=== PATIENT | female | born 1955 | race Caucasian/White ===

== ENCOUNTER → 2017-07-29 | Outpatient (CLI) | payer BC | LOC: M WUC 11:00 | DX: R05 Cough (principal) | CPT/HCPCS: 71046 ==

== ENCOUNTER → 2018-07-23 | Outpatient (CLI) | payer OTHER ==
--- NOTE | 2018-07-23 11:30 | REP ---
RIGHT ANKLE: Three views. HISTORY: Contusion. FINDINGS: AP and both oblique views of the ankle are presented. There is an obliquely oriented fracture through the distal fibular metaphysis at the level of the ankle mortise. There is an accessory ossicle adjacent to the medial malleolar tip. No acute tibial fracture is seen. No lateral view is included. There is diffuse soft tissue swelling. There are metallic screws in the distal 1st and 5th metatarsals. IMPRESSION: Obliquely oriented fracture through the distal fibula without significant displacement. No lateral view presented. Electronically Signed by Yaya Taylor MD 07/23/2018 04:24 P
--- NOTE | 2018-07-23 11:31 | REP ---
RIGHT TIB/FIB SERIES: Four views. HISTORY: For views of the right tib/fib are obtained including a lateral view centered at the ankle. An obliquely oriented distal fibular fracture is again noted. No tibial fracture is seen. Ankle mortise appears intact. There is osteoarthritic spurring of the patella. IMPRESSION: Distal fibular fracture. Electronically Signed by Yaya Taylor MD 07/23/2018 04:25 P
--- NOTE | 2018-07-23 11:32 | REP ---
RIGHT FOOT, FOUR VIEWS: HISTORY: Contusion. The patient is status post osteotomy of the 1st and 5th metatarsals. Metal screws are present. There is no acute fracture or dislocation. The joint spaces are normal in appearance. IMPRESSION: There is no acute fracture or dislocation. Electronically Signed by Bart Jones MD 07/23/2018 11:38 A
== END ==
LOC: M WUC 10:42
PROVIDERS: ATTEND Physician Assistant
DX: S82.434A Nondisplaced oblique fracture of shaft of right fibula, initial encounter for closed fracture (principal); X58.XXXA Exposure to other specified factors, initial encounter; Y92.9 Unspecified place or not applicable

== ENCOUNTER → 2019-08-12 | Outpatient (CLI) | payer OTHER ==
--- NOTE | 2019-08-12 16:00 | REP ---
Clinical: Neck pain. Technique: AP, lateral, flexion/extension, bilateral oblique and open mouth views of the cervical spine. Findings: Alignment and lordosis maintained. No acute fracture / compression injury or subluxation. Mild degenerative disc disease noted at C4-5 and C5-6 with endplate sclerosis, marginal early spurring, and minimal disc space narrowing. Minimal endplate sclerosis and disc space narrowing also suggested at the C6-7 level. Neural foramen appear patent. Open mouth view demonstrates normal C1-C2 articulation and odontoid process. Impression: Essentially age-related degenerative changes through the mid cervical spine. No acute fracture / compression injury or subluxation. Electronically Signed by Rudy Hickey MD 08/12/2019 03:51 P
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
== END ==
LOC: M WUC 15:19
PROVIDERS: ATTEND Internal Medicine
DX: M54.5 Low back pain (principal); K80.20 Calculus of gallbladder without cholecystitis without obstruction; M50.321 Other cervical disc degeneration at C4-C5 level; M50.322 Other cervical disc degeneration at C5-C6 level

== ENCOUNTER → 2019-09-09 | Outpatient (CLI) | payer OTHER ==
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
== END ==
LOC: M WUC 13:20
PROVIDERS: ATTEND Registered Nurse
DX: M25.541 Pain in joints of right hand (principal); M25.542 Pain in joints of left hand; M25.531 Pain in right wrist; M25.532 Pain in left wrist; Z87.828 Personal history of other (healed) physical injury and trauma

== ENCOUNTER → 2021-07-08 | Outpatient (REF) | payer OTHER | LOC: M LAB REF 16:16 | PROVIDERS: ATTEND Internal Medicine | DX: T14.90XA Injury, unspecified, initial encounter (principal); W57.XXXA Bitten or stung by nonvenomous insect and other nonvenomous arthropods, initial encounter; Y92.9 Unspecified place or not applicable; Y93.9 Activity, unspecified; Y99.9 Unspecified external cause status ==

== ENCOUNTER → 2022-04-03 | Outpatient (CLI) | payer OTHER | LOC: M WHC 14:39 | PROVIDERS: ATTEND Internal Medicine | DX: Z12.31 Encounter for screening mammogram for malignant neoplasm of breast (principal) ==

== ENCOUNTER → 2023-12-08 | Outpatient (CLI) | payer BC | LOC: M WHC 10:59 | PROVIDERS: ATTEND Internal Medicine | DX: Z12.31 Encounter for screening mammogram for malignant neoplasm of breast (principal); R92.313 Mammographic fatty tissue density, bilateral breasts ==

== ENCOUNTER 2024-01-18 11:56 | Day surgery (SDC) | payer BC ==
[~2024-01-18] VITALS: Ht 160 cm; Wt 85.1 kg
[~2024-01-18 11:56] MED LIST: ALEV220T22 PO; ESTR1TAB PO; LEVO100T5 PO; METO1TAB7 PO; SIMV20TA22 PO; THERTAB52 PO
[2024-01-18] MEDS: NS 1,000 ML IV ONE (12:29)
[2024-01-18] MEDS ORDERED: LIDOCAINE 2% 100MG/5ML SDV (FOR ANES.) As Ordered ONE (12:47)
[2024-01-18] MEDS ORDERED: propofoL 200 MG/20 ML VIAL As Ordered ONE (12:47)
[2024-01-18] MEDS ORDERED: fentaNYL 100 MCG/2 ML INJECTION As Ordered ONE (13:10)
[2024-01-18 13:44] VITALS: BP 144/71; O2SAT 98
== END 2024-01-18 14:05 | disposition home or self-care (01) ==
LOC: M OPP 11:56
PROVIDERS: ATTEND Internal Medicine Gastroenterology
DX: Z12.11 Encounter for screening for malignant neoplasm of colon (principal); D12.6 Benign neoplasm of colon, unspecified; K64.0 First degree hemorrhoids; K21.00 Gastro-esophageal reflux disease with esophagitis, without bleeding; K44.9 Diaphragmatic hernia without obstruction or gangrene; R12 Heartburn; Z87.891 Personal history of nicotine dependence; Z79.02 Long term (current) use of antithrombotics/antiplatelets; Z79.1 Long term (current) use of non-steroidal anti-inflammatories (NSAID); Z79.818 Long term (current) use of other agents affecting estrogen receptors and estrogen levels; Z79.890 Hormone replacement therapy; Z79.899 Other long term (current) drug therapy
CPT/HCPCS: 43239; 45380; 45385; 88305; J3010

== ENCOUNTER 2025-01-09 06:40 | Day surgery (SDC) | payer BC ==
[~2025-01-09] VITALS: Ht 160 cm; Wt 84.2 kg
[~2025-01-09 06:40] MED LIST changes: +CALC600C3 PO; +CLOB0.0548 VG; +ESTR0.1C5 VG
[2025-01-09] MEDS ORDERED: LIDOCAINE 2% 100 MG/5 ML SDV (FOR ANES.) As Ordered ONE (08:13)
[2025-01-09 08:55] VITALS: TEMP 96.8
[2025-01-09 09:11] VITALS: BP 156/71; O2SAT 98
== END 2025-01-09 09:18 | disposition home or self-care (01) ==
LOC: M OPP 06:40
PROVIDERS: ATTEND Internal Medicine Gastroenterology
DX: D12.8 Benign neoplasm of rectum (principal); K57.30 Diverticulosis of large intestine without perforation or abscess without bleeding; K64.0 First degree hemorrhoids; Z86.03 Personal history of neoplasm of uncertain behavior; Z79.899 Other long term (current) drug therapy

== ENCOUNTER → 2025-03-08 | Outpatient (CLI) | payer BC, MEDICARE | LOC: M SOG 07:00 | PROVIDERS: ATTEND Neuromusculoskeletal Medicine, Sports Medicine | DX: M79.641 Pain in right hand (principal) ==